=== PATIENT | male | born 1985 | race Caucasian/White ===

== ENCOUNTER 2017-07-03 21:37 | Emergency (ER) | payer SELFPAY ==
[~2017-07-03] VITALS: Ht 165.1 cm; Wt 77.3 kg
[2017-07-03 22:06] VITALS: BP 136/84
--- NOTE | 2017-07-03 22:12 | NUR ---
Pt states he has been itching since the am on this day, 07/03/17. Pt states he has recently changed his clothes detergent at home and has recently moved to [place] from [facility] (). VSS, A&Ox4, Pt denies SOB or Dyspnea, Lungs clear thorughout. ER MD guerrero. Continue to monitor.
--- NOTE | 2017-07-03 22:13 | NUR ---
pt ambulated to er chairA
[2017-07-04 01:25] VITALS: BP 111/59
--- NOTE | 2017-07-04 01:25 | NUR ---
Patient discharged with v/s stable. Written and verbal after care instructions given and explained. Patient alert, oriented and verbalized understanding of instructions. Ambulatory with steady gait. All questions addressed prior to discharge. ID band removed. Patient advised to follow up with PMD. Rx of Triamcinolone Acetonide and Benadryl given. Patient educated on indication of medication including possible reaction and side effects. Opportunity to ask questions provided and answered.
== END 2017-07-04 01:25 | disposition home or self-care (01) ==
LOC: MED 21:37
DX: L40.9 Psoriasis, unspecified (principal)
CPT/HCPCS: 99283